=== PATIENT | male | born 1930 | race Caucasian/White ===

== ENCOUNTER 2019-08-22 08:53 | Emergency (ER) | payer MEDICARE ==
[~2019-08-22] VITALS: Ht 175.3 cm; Wt 81.6 kg
[2019-08-22] MEDS ORDERED: HYDROcodone-ACET 5/325MG TAB PO ONE (10:15)
[2019-08-22 11:00] VITALS: BP 112/71
== END 2019-08-22 12:20 | disposition home or self-care (01) ==
LOC: ER 08:53 → EDBD 08:53 → ER 12:20
DX: S09.90XA Unspecified injury of head, initial encounter (principal); M54.2 Cervicalgia; R42 Dizziness and giddiness; I25.10 Atherosclerotic heart disease of native coronary artery without angina pectoris; I25.2 Old myocardial infarction; Z85.9 Personal history of malignant neoplasm, unspecified; Z88.2 Allergy status to sulfonamides; W01.198A Fall on same level from slipping, tripping and stumbling with subsequent striking against other object, initial encounter; Y93.01 Activity, walking, marching and hiking; Y92.89 Other specified places as the place of occurrence of the external cause; Y99.8 Other external cause status
CPT/HCPCS: 70450; 72125; 93005